=== PATIENT | male | born 1995 | race Caucasian/White ===

== ENCOUNTER 2024-04-30 16:31 | Emergency (ER) | payer OTHER, BC ==
[2024-04-30] MEDS: KETOROLAC 60 MG/2 ML VIAL IM STA (20:29)
[2024-04-30] MEDS: DEXAMETHASONE 10 MG/ML VIAL IM STA ×2 (20:47→20:52)
--- NOTE | 2024-04-30 21:05 | XRAY Report ---
PROCEDURE: Lumbar Spine 2-3V INDICATIONS: pain TECHNIQUE: 2 views of the lumbar spine were acquired. COMPARISON: None. FINDINGS: Surgical change: None. Bones: 5 [id number] vertebrae are present. There is normal bony alignment. No vertebral body co mpression fractures. No suspicious bony lesions. Minimal degenerative endplate changes and facet hyp ertrophy. Soft tissues: Overlying bowel gas pattern is normal. No suspicious soft tissue calcifications. IMPRESSION: Minimal spondylosis. No acute osseous abnormality. If symptoms persist or there is continued clinical concern, further evaluation with MRI or CT may be helpful. Reviewed by: Ronaldo Minor MD on 04/30/2024 9:03 PM PDT Approved by: Ronaldo Minor MD on 04/30/2024 9:03 PM PDT Station ID: [id number]
[2024-04-30] MEDS: HYDROcod/ACET 5/325 Prepack 4 PO STA (21:13)
[2024-04-30] MEDS: CYCLOBENZAPRINE 10 MG Prepack 2 PO PRN (21:15)
--- NOTE | 2024-04-30 21:29 | ED Physician Documentation ---
History of Present Illness - Stated complaint Stated Complaint: BACK PX - Chief complaint Chief Complaint: Back Pain - History obtained from History obtained from: Patient - Additonal information Additional information: Patient comes to the emergency department chief complaint of low back pain. He states he was bending over at work to do something when he felt a sudden sharp pain in his lumbar area. It feels like it is in the midline he states but also feels like it may be slightly off to the right. He denies any nausea or vomiting. No numbness or tingling in his lower extremities. No urinary symptoms. No loss of bowel or bladder control. He states that he probably has some "[id number]" from playing sports as a teenager but does not have any chronic back issues otherwise. No other complaints at this time. PD PAST MEDICAL HISTORY - Past Medical History Past Medical History: Yes - Past Surgical History Past Surgical History: No - Allergies Allergies/Adverse Reactions: Allergies Allergy/AdvReac Type Severity Reaction Status Date / Time No Known Drug Allergies Allergy Verified 04/30/24 19:27 - Social History Does the pt smoke?: No Smoking Status: Never smoker Does the pt drink ETOH?: Yes Does the pt have substance abuse?: No PD ED PE NORMAL - Vitals Vital signs reviewed: Yes - General General: Alert and oriented X 3, No acute distress, Well developed/nourished - HEENT HEENT: Atraumatic, EOMI, Moist mucous membranes - Neck Neck: Supple, no meningeal sign - Cardiac Cardiac: RRR, No murmur - Respiratory Respiratory: No respiratory distress, Clear bilaterally - Abdomen Abdomen: Soft, Non tender, Non distended - Back Back: No CVA TTP, No spinal TTP, Other (No tenderness palpation anywhere on the back) - Derm Derm: Normal color, Warm and dry, No rash - Extremities Extremities: No deformity - Neuro Neuro: Alert and oriented X 3 - Psych Psych: Normal mood, Normal affect Results - Vitals Vitals: Vital Signs - 24 hr 04/30/24 04/30/24 17:02 21:55 Temperature 36.7 C Heart Rate 75 68 Respiratory 18 16 Rate Blood Pressure 157/69 H 148/79 H O2 Saturation 100 99 Oxygen O2 Source Room air - Rads (name of study) Lumbar spine x-ray series Relevant Findings:: Final report received, See rad report (Mild degeneration, otherwise negative) PD Medical Decision Making - ED course Complexity details: reviewed results, re-evaluated patient, considered differential, d/w patient ED course: The patient was treated symptomatically in the emergency department and worked up with x-ray series of the lumbar spine, which was unremarkable other than some mild degeneration. I did discuss this with the patient, as he is a bit young for this finding. We have discussed the MRI will be the test of choice for follow-up if the patient's symptoms do not resolve on their own in the next couple of weeks. The patient was feeling better after medication administration in the emergency department. He had no emergent findings on history or exam. He is stable for discharge home. Departure - Departure Disposition: , Self Care Clinical Impression: Strain of lumbar region Qualifiers: Encounter type: initial encounter Qualified Code(s): S39.012A - Strain of muscle, fascia and tendon of lower back, initial encounter Condition: Stable Instructions: ED Sprain Strain Lumbar Follow-Up: Ysabel Ross ARNP [Provider Admit Priv/Credential] - Comments: Your spine x-ray shows some mild degeneration in your upper lumbar spine. This is not by any means severe but is a bit on the early side for somebody your age, and probably reflects some of the sports injuries you had when you were younger. You have been given prepacks of medicine for muscle relaxation and pain and may take these along with ibuprofen as needed. If your pain has not improved in the next couple of weeks, please call to make a follow-up appointment with primary care to discuss imaging with MRI and get established for basic care. Forms: Activity restrictions Discharge Date/Time: 04/30/24 21:55
[2024-04-30 22:01] VITALS: BP 148/79; O2SAT 99
== END 2024-04-30 21:55 | disposition home or self-care (01) ==
LOC: ED 16:31
DX: S39.012A Strain of muscle, fascia and tendon of lower back, initial encounter (principal); X50.1XXA Overexertion from prolonged static or awkward postures, initial encounter; Y99.0 Civilian activity done for income or pay
CPT/HCPCS: 96372; 99283; 99284